=== PATIENT | male | born 1985 | race Hispanic/Latino ===

== ENCOUNTER 2020-05-17 07:52 | Day surgery (SDC) | payer OTHER ==
[2020-05-15 11:35] VITALS: BMI 16.9
[2020-05-17] MEDS ORDERED: Fentanyl 250 MCG/5 ML VIAL ONE (08:07)
[2020-05-17] MEDS ORDERED: Lidocaine 1% w/Epinephrine 1:100K 20 ML VIAL ONE (09:33)
[2020-05-17] MEDS ORDERED: Bacitracin Zinc Ointment 30 gm TUBE ONE (09:33)
[2020-05-17] MEDS ORDERED: Midazolam HCl 2 mg/2 ml Vial ONE (09:37)
[2020-05-17] MEDS ORDERED: Glycopyrrolate 0.2 MG/ML 5 ML SYRINGE ONE (11:38)
[2020-05-17] MEDS ORDERED: Rocuronium Bromide 10 MG/ML (10ML VIAL) ONE (11:38)
[2020-05-17] MEDS ORDERED: Ketorolac Tromethamine 30 MG/ML VIAL ONE (11:38)
[2020-05-17] MEDS ORDERED: PROPOFOL 200 MG/20 ML VIAL ONE (11:38)
[2020-05-17] MEDS ORDERED: Fentanyl 100 MCG/2 ML VIAL ONE (11:56)
--- NOTE | 2020-05-18 15:08 | OP ---
DATE OF PROCEDURE: 05/17/2020 PREOPERATIVE DIAGNOSIS: Tracheocutaneous fistula. POSTOPERATIVE DIAGNOSIS: Tracheocutaneous fistula. PROCEDURES PERFORMED: Direct laryngoscopy, rigid bronchoscopy, and closure of tracheocutaneous fistula. PROCEDURE IN DETAIL: After consent was obtained, the patient was identified, brought to the operating room, placed on the operating table in supine position. General endotracheal anesthesia was obtained with a small endotracheal tube and the patient underwent systematic evaluation of oral cavity, oropharynx, hypopharynx, and larynx. The endotracheal tube was removed briefly and in the subglottic space, the tracheocutaneous fistula was examined internally. We then proceeded with examining the remainder of the trachea all of which was clear and there was no evidence of significant stenosis in the subglottic space or beyond the tracheocutaneous fistula. We then replaced the endotracheal tube and prepped and draped the patient for neck surgery. The marginal epithelium was incised in an elliptical fashion around the tracheocutaneous fistula and the fistula was dissected carefully down to the level of the trachea. We then excised the fistula and closed the cartilage with a Vicryl suture. We then freed up the sternocleidomastoid and strap muscles and reapproximated them in midline. This then allowed for us to advance the skin flaps over the muscle and subcutaneous tissue, and close the skin flaps in interrupted fashion with 4-0 Monocryl. The skin was closed with 5-0 Prolene. The patient was then awakened, extubated, and taken to recovery room in a stable condition prior to discharge home. Job ID: [id number]
== END 2020-05-17 13:15 | disposition home or self-care (01) ==
LOC: SDC 07:52
PROVIDERS: ATTEND Specialist
PROC: 0HX4XZZ Transfer Neck Skin, External Approach (ICD-10-PCS; principal; 2020-05-17)
DX: J39.8 Other specified diseases of upper respiratory tract (principal); F17.200 Nicotine dependence, unspecified, uncomplicated; Z79.899 Other long term (current) drug therapy; Z98.890 Other specified postprocedural states
CPT/HCPCS: J1885; J2250; J2704; J3010